=== PATIENT | female | born 1955 | race Hispanic/Latino ===

== ENCOUNTER → 2023-09-05 | Outpatient (CLI) | payer OTHER, SELFPAY ==
[2023-09-05 10:23] LABS: INR < 0.93 (0.85-1.15); PROTHROMBIN TIME 10.2 SEC (9.6-11.6)
[2023-09-05 10:24] LABS: PARTIAL THROMBOPLASTIN TIME 28.5 SEC (26.3-35.5)
== END | disposition home or self-care (01) ==
LOC: RAH 08:36
PROVIDERS: ATTEND Family Medicine
DX: R59.0 Localized enlarged lymph nodes (principal); C85.14 Unspecified B-cell lymphoma, lymph nodes of axilla and upper limb; C82.84 Other types of follicular lymphoma, lymph nodes of axilla and upper limb; E66.9 Obesity, unspecified; Z79.899 Other long term (current) drug therapy; Z79.01 Long term (current) use of anticoagulants; Z68.31 Body mass index [BMI] 31.0-31.9, adult; Z90.710 Acquired absence of both cervix and uterus; Z83.3 Family history of diabetes mellitus; Z98.890 Other specified postprocedural states; Z83.438 Family history of other disorder of lipoprotein metabolism and other lipidemia
CPT/HCPCS: 38505; 85610; 85730; 36415; 88305; 88374; 76942; A4648